=== PATIENT | female | born 1965 | race Caucasian/White ===

== ENCOUNTER 2018-06-20 07:09 | Emergency (ER) | payer BC ==
--- OUTSIDE RECORDS SUMMARY | 2018-06-20 07:21 | XMS REPORT | Continuity of Care Document ---
:1965 External Reference #:[id number] Author Name Boris Whitney MD Address [address] [place] [address] Care Team Providers Name Role Phone Katty Jama MD Primary Care Physician Unavailable Payers Type Date Identification Numbers Payment Provider Subscriber Policy Number: [id number] [facility] Shannon Mancia PayID: [id number] [address] [place] [id number] Advance Directives Description No Information Available Problems Date Description Provider Status Onset: 05/12/2018 Keratitis Boris Whitney MD Active Onset: 05/27/2018 Nuclear senile cataract Boris Whitney MD Active Family History Date Family Member(s) Problem(s) Comments General Cataract Parents Social History Type Date Description Comments Sex Unknown ETOH Use Occasionally consumes alcohol Tobacco Use Start: Unknown Patient has never smoked Recreational Drug Use Denies Drug Use Smoking Status Reviewed: 05/27/18 Patient has never smoked Allergies, Adverse Reactions, Alerts Date Description Reaction Status Severity Comments 05/12/2018 Penicillin Active 05/12/2018 Seasonal Active Medications Medication Date Status Form Strength Qnty SIG Indications Ordering Provider Zylet Active Suspension 0.5-0.3% 15ml 1 drop Boris G 018 right eye Chelo four times MD a day as directed Probiotic Active Capsules Unknown 000 Polytrim Hx Solution 36928-2.1Un 10ml 1 drop four H16.9 Boris G 018 - it/ML-% times a day Chelo as directed MD Gloria right eye Immunizations Description No Information Available Vital Signs Date Vital Result Comment 05/27/2018 8:33am Intraocular Pressure Right Eye 14 mmHg Tp Intraocular Pressure Left Eye 13 mmHg Tp 05/15/2018 10:09am Intraocular Pressure Right Eye 14 mmHg Tp 10:09 Am Intraocular Pressure Left Eye 13 mmHg Tp 10:09 Am 05/12/2018 1:41pm Intraocular Pressure Right Eye 15 mmHg tp dang Intraocular Pressure Left Eye 15 mmHg Results Description No Information Available Procedures Description No Information Available Encounters Type Date Location Provider Dx Diagnosis Office Visit 05/15/2018 Main Office Boris Whitney, H16.9 Unspecified keratitis 10:30a MD Office Visit 05/12/2018 Main Office Boris Whitney, H16.9 Unspecified keratitis 1:15p Plan of Treatment 05/27/2018 - Boris Whitney MDH16.9 Unspecified keratitisComments:IMPROVED ODD/C POLYTRIMZYLET QID FOR 5 DAYS, TID FOR 5 DAYS, BID FOR 5 DAYS, QD FOR 5 DAYS THEN D/CFollow up:1 Fri CORNEA CHK/NON-DILH25.13 Age-related nuclear cataract, bilateralComments:[facility] FO[facility]
[2018-06-20 07:34] VITALS: BP 132/83
--- NOTE | 2018-06-20 07:39 | UC ---
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 Last night she states her R flank area was painful. States having a temp of approx 100 for the past 2 days." mild body aches, nausea. no vomiting. - History of Current Complaint Chief Complaint: UCGU Stated Complaint: URINARY COMPLAINT Time Seen by Provider: 06/20/18 07:34 Hx Last Menstrual Period: 04/2017 Pain Intensity: 5 - Allergies/Home Medications Allergies/Adverse Reactions: Allergies Allergy/AdvReac Type Severity Reaction Status Date / Time ciprofloxacin Allergy Rash Verified 06/20/18 07:35 hydrocodone Allergy Rash Verified 06/20/18 07:35 ondansetron Allergy Rash Verified 06/20/18 07:35 Penicillins Allergy Hives Verified 06/20/18 07:35 prednisone Allergy Swelling Verified 06/20/18 07:35 PMH/Surg Hx/FS Hx/Imm Hx Previously Healthy: Yes - Surgical History Surgical History: Yes Surgery Procedure, Year, and Place: HEART CATH-no findings. C SECTION X2 - Family History Known Family History: Negative: Diabetes - Social History Alcohol Use: Occasionally Substance Use Type: None Smoking Status (MU): Never Smoked Tobacco Household Exposure Type: Cigarettes Review of Systems All Other Systems Reviewed And Are Negative: Yes Constitutional: Positive: Negative Skin: Positive: Negative Eyes: Positive: Negative ENT: Positive: Negative Respiratory: Positive: Negative Cardiovascular: Positive: Negative Gastrointestinal: Positive: Nausea Genitourinary: Positive: Frequency, Urgency Motor: Positive: Negative Neurovascular: Positive: Negative Musculoskeletal: Positive: Myalgia Neurological: Positive: Negative Psychological: Positive: Negative Is Patient Immunocompromised?: No Physical Exam Triage Information Reviewed: Yes Appearance: Well-Appearing, No Pain Distress, Well-Nourished - very pleasant. reliable historian Vital Signs: Initial Vital Signs Temp 98.3 F 06/20/18 07:27 Pulse 88 06/20/18 07:27 Resp 16 06/20/18 07:27 BP 132/83 06/20/18 07:27 Pulse Ox 98 06/20/18 07:27 Eye Exam: Normal ENT Exam: Normal ENT: Positive: Pharynx normal, TMs normal Neck exam: Normal Neck: Positive: Supple, Nontender, No Lymphadenopathy Respiratory Exam: Normal Respiratory: Positive: Lungs clear, Normal breath sounds, No respiratory distress, No accessory muscle use Cardiovascular Exam: Normal Cardiovascular: Positive: RRR Abdominal Exam: Normal Abdomen Description: Positive: Nontender, Soft. Negative: CVA Tenderness (R), CVA Tenderness (L), Distended, Guarding, Peritoneal Signs, Splenomegaly Bowel Sounds: Positive: Present Musculoskeletal Exam: Normal Neurological Exam: Normal Skin Exam: Normal Upper Extremity Course/Dx - Course Course Of Treatment: UA +. -usually takes macrobid withg good results. -of note - wrong template opened. there is no UE pain - Differential Dx/Diagnosis Differential Diagnosis/HQI/PQRI: Other - UTI Provider Diagnosis: UTI (urinary tract infection) Discharge - Sign-Out/Discharge Documenting (check all that apply): Patient Departure All imaging exams completed and their final reports reviewed: No Studies - Discharge Plan Condition: Stable Disposition: HOME Prescriptions: Nitrofurantoin Monohyd/M-Cryst [Macrobid 100 mg Capsule] 100 mg PO BID 7 Days # 14 cap Patient Education Materials: Urinary Tract Infection in Women (ED) Referrals: Katty Jama PA [Primary Care Provider] - 2 Weeks Additional Instructions: You should follow up sooner if your symptoms worsen, nausea, vomiting, body aches. - Billing Disposition and Condition Condition: STABLE Disposition: Home
== END 2018-06-20 07:52 | disposition home or self-care (01) ==
LOC: UCCORT 07:09
DX: B96.20 Unspecified Escherichia coli [E. coli] as the cause of diseases classified elsewhere (principal); N39.0 Urinary tract infection, site not specified; Z88.0 Allergy status to penicillin; Z88.1 Allergy status to other antibiotic agents; Z88.5 Allergy status to narcotic agent; Z88.8 Allergy status to other drugs, medicaments and biological substances
CPT/HCPCS: 81003; 87077; 87086; 87186; 99212; G0463